=== PATIENT | male | born 1960 | race Caucasian/White ===

== ENCOUNTER 2021-02-07 18:19 | Emergency (ER) | payer OTHER ==
[~2021-02-07] VITALS: Ht 177.8 cm; Wt 102.1 kg
[2021-02-07 18:30] VITALS: BP_SYST 173
--- NOTE | 2021-02-07 18:35 | NUR ---
Patient to ER bed 4 to gown for evaluation. Side rails up. Report given to BAHMAN HARRISON.
--- NOTE | 2021-02-07 18:40 | NUR ---
ER at bedside examining patient.
[2021-02-07] MEDS ORDERED: KETOROLAC TROMETHAMINE 60 MG/2 ML VIAL IM ONE (18:45)
[2021-02-07] MEDS ORDERED: ONDANSETRON 4 MG ODT TAB PO ONE (18:45)
[2021-02-07 19:06] LABS: BASOPHILS % (AUTO) 0.4 % (0.0-2.0); EOSINOPHILS # (AUTO) 0.1 K/uL (0.0-0.4); HEMATOCRIT 41.8 % (36-54); HEMOGLOBIN 14.1 g/dL (14.0-18.0); LYMPHOCYTES # (AUTO) 1.5 K/uL (1.0-5.5); LYMPHOCYTES % (AUTO) 15.3 % (20.5-51.5); MEAN CORPUSCULAR HEMOGLOBIN 31 pg (27-31); MEAN CORPUSCULAR HGB CONC 34 % (32-36); MEAN CORPUSCULAR VOLUME 92 fL (79.0-98.0); MONOCYTES # (AUTO) 0.6 K/uL (0.0-1.0); MONOCYTES % (AUTO) 5.7 % (1.7-9.3); NEUTROPHILS # (AUTO) 7.6 K/uL (1.8-7.7); NEUTROPHILS % (AUTO) 77.6 % (40.0-70.0); PLATELET COUNT (AUTO) 230 K/uL (130-430); RED BLOOD CELL COUNT(AUTO) 4.54 MIL/uL (4.2-6.2); RED CELL DISTRIBUTION WIDTH 14.1 % (9.0-15.0); WHITE BLOOD COUNT (AUTO) 9.8 K/uL (4.8-10.8)
--- NOTE | 2021-02-07 19:10 | NUR ---
PT ARRIVED TO ER FOR COMPLAINSTS OF RIGHT FLANK PAIN . PT HAD A SIMILAR EPISODE 5 YEARS AGO ON SAME SIDE AND THINKS IT WAS A KIDNEY STONE. NO STONE WAS OBSERVED THE FIRST TIME. 11/01 PAIN. PT HAS SELF MEDICATED WITH BACLOFEN AT HOME. AT BEDSIDE
[2021-02-07 19:18] LABS: CALCIUM 9.3 mg/dL (8.4-11.0); CREATININE 1.21 mg/dL (0.55-1.30)
[2021-02-07 19:22] LABS: C-REACTIVE PROTEIN QUANT 1.2 mg/dL (0-0.5)
[2021-02-07 19:24] LABS: ALBUMIN 3.6 g/dL (3.4-4.8); TOTAL BILIRUBIN 0.3 mg/dL (0.0-1.0)
[2021-02-07 19:27] LABS: INR 0.9 (0.80-1.20); PROTHROMBIN TIME 10.1 SECS (9.5-12.5)
[2021-02-07 20:07] LABS: BILIRUBIN,URINE NEGATIVE (NEGATIVE); BLOOD, URINE 3+ (NEGATIVE); COLOR,URINE YELLOW (YELLOW); GLUCOSE,URINE NEGATIVE (NEGATIVE); KETONES,URINE NEGATIVE (NEGATIVE); LEUKOCYTE ESTERASE ,URINE NEGATIVE (NEGATIVE); NITRITE, URINE NEGATIVE (NEGATIVE); PH,URINE 5.5 (5.0-8.0); PROTEIN URINE TRACE (NEGATIVE); UROBILINOGEN,URINE 0.2 (0.2-1.0)
[2021-02-07 20:16] LABS: CLARITY/URINE SLIGHTLY HAZY (CLEAR)
[2021-02-07 20:20] LABS: BACTERIA,URINE FEW /HPF (None Seen); WBC,URINE 0-3 /HPF (0-3)
--- NOTE | 2021-02-07 20:30 | NUR ---
PT RESTING IN BED COMFORTABLY AWAITING RESULTS
[2021-02-07] MEDS ORDERED: IBUP-1971 PO (21:03)
[2021-02-07] MEDS ORDERED: HYDR-3917 PO (21:03)
--- NOTE | 2021-02-07 21:18 | NUR ---
Patient given written and verbal discharge instructions and verbalizes understanding. ER MD discussed with patient the results and treatment provided. Patient in stable condition. ID arm band removed. Rx of NORCO, MOTRIN given. Patient educated on pain management and to follow up with PMD. Pain Scale 2/10. Opportunity for questions provided and answered. Medication side effect fact sheet provided.
[2021-02-07 21:20] VITALS: BP_SYST 154
== END 2021-02-07 21:19 | disposition home or self-care (01) ==
LOC: SED 18:19
DX: N20.0 Calculus of kidney (principal); Z79.899 Other long term (current) drug therapy
CPT/HCPCS: 36415; 74176; 76376; 80053; 81000; 82150; 83605; 83690; 85025; 85610; 85730; 86140; 96372; 99284; J1885; Q0162